=== PATIENT | male | born 1965 | race Caucasian/White ===

== ENCOUNTER 2017-05-14 19:25 | Emergency (ER) | payer OTHER ==
[~2017-05-14] VITALS: Ht 170.2 cm; Wt 56.7 kg
[~2017-05-14 19:25] MED LIST: LISI-586 PO; PRED20 PO; PROC60TA PO
[2017-05-14 19:31] VITALS: BP 174/91; PULSE 57; RESP 16; TEMP 98.5; O2SAT 100
[2017-05-14] MEDS ORDERED: LISI-519 PO (22:00)
[2017-05-14] MEDS ORDERED: METO25TA3 PO (22:00)
[2017-05-14] MEDS ORDERED: HYDR-3801 PO (22:00)
--- NOTE | 2017-05-14 22:35 | PD ---
HPI Chief Complaint: Injury Time Seen by Provider: 22:02 Travel History International Travel<30 days: No Contact w/Intl Traveler<30days: No Traveled to known affect area: No History of Present Illness HPI 52-year-old male presents to the emergency room for evaluation of right foot pain and swelling after injuring it yesterday. Patient dropped a large container full of wrenches on his foot. States pain was severe yesterday and has slightly improved today. It is worsened with any range of motion. Localized to the dorsal midfoot without radiation. He has been taking ibuprofen which moderately relieved symptoms. He walks with a limp. Denies paresthesias. Denies chronic medical conditions other than hypertension. PFSH Past Medical History Diminished Hearing: No Hypertension: Yes Tetanus Vaccination: < 5 Years Influenza Vaccination: No Past Surgical History Appendectomy: Yes Social History Alcohol Use: Yes (6-8 BEERS DAILY) Tobacco Use: Yes (snuff) Substance Use: No Allergies-Medications (Allergen,Severity, Reaction): Coded Allergies: No Known Allergies (Verified , 05/14/17) Reported Meds & Prescriptions Reported Meds & Active Scripts Active Reported Hydralazine (Hydralazine HCl) 100 Mg Tab 100 Mg PO BID Take with meals Lisinopril 5 Mg Tab 5 Mg PO DAILY Metoprolol Tartrate 25 Mg Tab 25 Mg PO BID Review of Systems Except as stated in HPI: all other systems reviewed are Neg Physical Exam Narrative GENERAL: Well-nourished, well-developed male in no acute distress. Afebrile. Ambulatory. SKIN: Focused skin assessment warm/dry. Moderate ecchymosis of the right dorsal foot. HEAD: Normocephalic. EYES: No scleral icterus. No injection or drainage. NECK: Supple, trachea midline. No JVD or lymphadenopathy. CARDIOVASCULAR: Regular rate and rhythm without murmurs, gallops, or rubs. RESPIRATORY: Breath sounds equal bilaterally. No accessory muscle use. MSK: Tenderness to palpation of the right dorsal foot. Moderate edema of the right foot. 2+ dorsalis pedis pulse and less than 2 second capillary refill distally. Data Data Last Documented VS Vital Signs Date Time Temp Pulse Resp B/P (MAP) Pulse Ox O2 Delivery O2 Flow Rate FiO2 05/14/17 23:14 05/14/17 19:31 98.5 57 16 100 Orders Orders Foot, Complete ([id number]) (05/14/17 ) Crutches (05/14/17 22:57) Splint Or Brace Apply/Monitor (05/14/17 22:57) Shoe Cast (05/14/17 ) MDM Medical Decision Making Medical Screen Exam Complete: Yes Emergency Medical Condition: Yes Medical Record Reviewed: Yes Differential Diagnosis Fracture, contusion, strain, sprain Narrative Course 52-year-old male presents to the emergency room for evaluation of right foot pain and swelling after injuring it yesterday. Patient dropped a heavy set of wrenches on his foot. Right lower extremity is neurovascularly intact with 2+ dorsalis pedis pulse and less than 2 second capillary refill distally. Range of motion secondary to pain. There is extreme tenderness to palpation of the dorsal midfoot. Patient has been ambulatory but with pain. No history of diabetes. X-ray shows no acute bony abnormality. Patient placed in a postop shoe and discharged with crutches. Told to follow up with a primary care physician or return for worsening symptoms. He understands and agrees to plan. Diagnosis Primary Impression: Contusion of right foot Qualified Codes: S90.31XA - Contusion of right foot, initial encounter Referrals: Primary Care Physician Additional Instructions: Rest and drink plenty of fluids. Take ibuprofen with food as directed, as needed for pain. Elevate and apply ice to the affected area for 20 minutes at a time, as needed for pain and swelling. Follow-up with a primary care physician. Return to the emergency room for worsening symptoms. Disposition: 01 DISCHARGE HOME Condition: Stable Keila Deleon May 14, 2017 22:35
--- NOTE | 2017-05-14 23:12 | RADRPT ---
EXAM DATE/TIME: 05/14/2017 22:36 [facility] COMPARISON: No previous studies available for comparison. INDICATIONS : Right foot pain. MEDICAL HISTORY : None. SURGICAL HISTORY : None. ENCOUNTER: Initial ACUITY: 2 days PAIN SCORE: 6/10 LOCATION: Right foot. FINDINGS: Three view examination of the right foot demonstrates no soft tissue swelling, dislocation, or fractu re. The tarsal bones appear intact. The interphalangeal and metatarsophalangeal joints are intact. The calcaneus is intact. Bony mineralization is normal. CONCLUSION: No acute disease. Daniel Hutchison MD on May 14, 2017 at 23:10 Board Certified Radiologist. This report was verified electronically.
== END 2017-05-14 23:15 | disposition home or self-care (01) ==
LOC: PHED 19:25 → PHEFT 23:15
DX: S90.31XA Contusion of right foot, initial encounter (principal); W22.8XXA Striking against or struck by other objects, initial encounter
CPT/HCPCS: 73630; 99283; E0113; L3260

== ENCOUNTER 2017-12-18 19:29 | Inpatient (IN) | payer OTHER ==
[2017-12-18] MEDS: PIPERACIL-TAZO 3.375 GM PREMIX 50 ML IV (20:27)
[2017-12-18] MEDS: TETANUS/DIPHTHERIA TOXOID ADULT 0.5 ML VIAL IM (20:28)
[2017-12-18 20:31] LABS: AUTOMATED NEUTROPHIL # 4.6 TH/MM3 (1.8-7.7); BASOPHIL # 0.2 TH/MM3 (0-0.2); BASOPHIL % 2.9 % (0.0-2.0); EOSINOPHIL % 0.2 % (0.0-4.0); HEMATOCRIT 34.6 % (39.0-51.0); HEMO FLAGS DIFF FINAL; HEMOGLOBIN 11.8 GM/DL (13.0-17.0); LYMPH % 14.2 % (9.0-44.0); MEAN CELL VOLUME 100.4 FL (80.0-100.0); MEAN CORPUSCULAR HEMOGLOBIN 34.3 PG (27.0-34.0); MEAN CORPUSCULAR HGB CONC 34.1 % (32.0-36.0); MEAN PLATELET VOLUME 6.5 FL (7.0-11.0); MONO % 19.6 % (0.0-8.0); MONOCYTE # 1.4 TH/MM3 (0-0.9); NEUT % 63.1 % (16.0-70.0); PLATELET COUNT 275 TH/MM3 (150-450); RED BLOOD COUNT 3.44 MIL/MM3 (4.50-5.90); RED CELL DISTRIBUTION WIDTH 12.2 % (11.6-17.2); WHITE BLOOD COUNT 7.2 TH/MM3 (4.0-11.0)
[2017-12-18 20:45] LABS: APTT (PATIENT) 27.1 SEC (24.3-30.1); INTERNATIONAL NORMALIZED RATIO 1.2 RATIO; PROTHROMBIN TIME - PATIENT 11.7 SEC (9.8-11.6)
[2017-12-18 21:00] LABS: CHLORIDE 90 MEQ/L (98-107); POTASSIUM 3.9 MEQ/L (3.5-5.1); SODIUM (NA) 125 MEQ/L (136-145)
[2017-12-18 21:03] LABS: ANION GAP 8 MEQ/L (5-15); BICARBONATE 27.2 MEQ/L (21.0-32.0); BLOOD UREA NITROGEN 6 MG/DL (7-18); CALCIUM 8.5 MG/DL (8.5-10.1); GLUCOSE,RANDOM 94 MG/DL (74-106)
[2017-12-18] MEDS: VANCOMYCIN INJ 1,000 MG in SODIUM CHLOR 0.9% 250 ML INJ 250 ML IV (21:06)
[2017-12-18 21:07] LABS: CREATININE 0.64 MG/DL (0.60-1.30); GLOMERULAR FILTRATION RATE 131 ML/MIN (>89)
[2017-12-18] MEDS ORDERED: LACTULOSE SYRUP 20 GM/30 ML CUP PO (21:30)
[2017-12-18] MEDS ORDERED: LORazepam 2 MG TAB PO (21:30)
[2017-12-18] MEDS ORDERED: MAGNESIUM HYDROXIDE SUSP 30 ML CUP PO (21:30)
[2017-12-18] MEDS ORDERED: NALOXONE HCL 0.4 MG/ML AMP IV PUSH (21:30)
[2017-12-18] MEDS ORDERED: FLUMAZENIL 0.5 MG/5 ML VIAL IV PUSH (21:30)
[2017-12-18] MEDS ORDERED: LORazepam 1 MG TAB PO (21:30)
[2017-12-18] MEDS ORDERED: LORazepam 2 MG/ML VIAL IV PUSH ×4 (21:30)
[2017-12-18] MEDS ORDERED: SENNOSIDES 8.6 MG TAB PO (21:30)
[2017-12-18] MEDS ORDERED: BISACODYL 10 MG SUPP RECTAL (21:30)
[2017-12-18] MEDS ORDERED: Vancomycin Consult Pharmacy 1 EA OTHER (22:30)
[2017-12-19] MEDS: MORPHINE SULFATE 4 MG/ML INJ IV ×3 (01:27→16:52)
[2017-12-19] MEDS: SODIUM CHLORIDE 0.9% FLUSH 10 ML FLUSH IV FLUSH ×4 (01:27→20:23)
[2017-12-19] MEDS: PIPERACIL-TAZO 4.5 GM PREMIX 100 ML IV ×4 (02:57→20:14)
[2017-12-19 08:36] LABS: AUTOMATED NEUTROPHIL # 4.7 TH/MM3 (1.8-7.7); BASOPHIL % 0.6 % (0.0-2.0); EOSINOPHIL % 0.6 % (0.0-4.0); HEMATOCRIT 40.7 % (39.0-51.0); HEMOGLOBIN 13.4 GM/DL (13.0-17.0); LYMPH % 13.3 % (9.0-44.0); LYMPHOCYTE # 0.9 TH/MM3 (1.0-4.8); MEAN CELL VOLUME 100.8 FL (80.0-100.0); MEAN CORPUSCULAR HEMOGLOBIN 33.3 PG (27.0-34.0); MEAN PLATELET VOLUME 6.7 FL (7.0-11.0); MONOCYTE # 1.4 TH/MM3 (0-0.9); NEUT % 65.5 % (16.0-70.0); PLATELET COUNT 279 TH/MM3 (150-450); RED BLOOD COUNT 4.03 MIL/MM3 (4.50-5.90); RED CELL DISTRIBUTION WIDTH 12.4 % (11.6-17.2)
[2017-12-19 08:38] LABS: HEMO FLAGS AUTO DIFF
[2017-12-19 08:53] LABS: CHLORIDE 93 MEQ/L (98-107); POTASSIUM 3.8 MEQ/L (3.5-5.1); SODIUM (NA) 129 MEQ/L (136-145)
[2017-12-19] MEDS: DOCUSATE SODIUM 50 MG/SENNA 8.6 MG TAB PO ×2 (09:00→20:15)
[2017-12-19 09:02] LABS: ALBUMIN 3.6 GM/DL (3.4-5.0); ALT (GPT) 145 U/L (12-78); ANION GAP 9 MEQ/L (5-15); AST (GOT) 179 U/L (15-37); BICARBONATE 26.6 MEQ/L (21.0-32.0); BLOOD UREA NITROGEN 5 MG/DL (7-18); CALCIUM 9.5 MG/DL (8.5-10.1); CREATININE 0.71 MG/DL (0.60-1.30); GLOMERULAR FILTRATION RATE 116 ML/MIN (>89); GLUCOSE,RANDOM 90 MG/DL (74-106)
[2017-12-19] MEDS: VANCOMYCIN 1,000 MG/NS 250 ML IV ×2 (09:02→20:57)
[2017-12-19 09:11] LABS: ALKALINE PHOSPHATASE 55 U/L (45-117); TOTAL BILIRUBIN ADULT 1.1 MG/DL (0.2-1.0); TOTAL PROTEIN 8.5 GM/DL (6.4-8.2)
[2017-12-19 09:12] LABS: SCAN/DIFF AUTO DIFF CONFIRMED
[2017-12-19] MEDS: SODIUM CHLOR 0.9% 1000 ML INJ 1,000 ML IV (10:51)
[2017-12-19] MEDS: CITALOPRAM HYDROBROMIDE 40 MG TAB PO (12:15)
[2017-12-19] MEDS: METOPROLOL TARTRATE 50 MG TAB PO ×2 (12:15→20:22)
[2017-12-19] MEDS: LISINOPRIL 20 MG TAB PO ×2 (12:15→20:15)
[2017-12-19] MEDS: hydrALAZINE HCL 25 MG TAB PO ×2 (12:15→20:15)
[2017-12-19] MEDS: DEXT 5%-NACL 0.9% 1000 ML INJ 1,000 ML IV (12:16)
[2017-12-19] MEDS: GADODIAMIDE PF 287 MG/ML 10 ML VIAL (for RAD MRI) IVCONTRAST (15:11)
[2017-12-20] MEDS: DEXT 5%-NACL 0.9% 1000 ML INJ 1,000 ML IV ×4 (00:45→20:44)
[2017-12-20] MEDS: PIPERACIL-TAZO 4.5 GM PREMIX 100 ML IV ×3 (02:47→15:49)
[2017-12-20] MEDS: SODIUM CHLORIDE 0.9% FLUSH 10 ML FLUSH IV FLUSH ×2 (08:29→20:42)
[2017-12-20] MEDS: CITALOPRAM HYDROBROMIDE 40 MG TAB PO (08:30)
[2017-12-20] MEDS: LISINOPRIL 20 MG TAB PO (08:30)
[2017-12-20] MEDS: METOPROLOL TARTRATE 50 MG TAB PO ×2 (08:31→20:45)
[2017-12-20] MEDS: DOCUSATE SODIUM 50 MG/SENNA 8.6 MG TAB PO (08:31)
[2017-12-20] MEDS: hydrALAZINE HCL 25 MG TAB PO ×2 (08:31→20:45)
[2017-12-20] MEDS: VANCOMYCIN TROUGH (08:45)
[2017-12-20] MEDS: VANCOMYCIN 1,000 MG/NS 250 ML IV (09:35)
[2017-12-20 10:27] LABS: GLOMERULAR FILTRATION RATE 49 ML/MIN (>89)
[2017-12-20 11:34] LABS: ALBUMIN 2.6 GM/DL (3.4-5.0); ALKALINE PHOSPHATASE 37 U/L (45-117); ALT (GPT) 95 U/L (12-78); ANION GAP 8 MEQ/L (5-15); AST (GOT) 99 U/L (15-37); BICARBONATE 26.4 MEQ/L (21.0-32.0); BLOOD UREA NITROGEN 9 MG/DL (7-18); CALCIUM 8.4 MG/DL (8.5-10.1); CHLORIDE 101 MEQ/L (98-107); GLOMERULAR FILTRATION RATE 49 ML/MIN (>89); GLUCOSE,RANDOM 108 MG/DL (74-106); POTASSIUM 3.7 MEQ/L (3.5-5.1); SODIUM (NA) 135 MEQ/L (136-145); TOTAL BILIRUBIN ADULT 0.9 MG/DL (0.2-1.0); TOTAL PROTEIN 6.9 GM/DL (6.4-8.2)
[2017-12-20 13:54] LABS: VANCOMYCIN TROUGH 19.2 MCG/ML (5.0-10.0)
[2017-12-20] MEDS: LOPERAMIDE HCL 2 MG CAP PO (15:49)
[2017-12-20 18:20] LABS: BILIRUBIN, URINE NEG (NEG); BLOOD, URINE NEG (NEG); GLUCOSE,URINE NEG (NEG); KETONE, URINE NEG (NEG); NITRITE,URINE NEG (NEG); URINE COLOR YELLOW (YELLW/STRAW); URINE LEUKOCYTE ESTERASE NEG (NEG)
[2017-12-20 18:25] LABS: COMMENT (UR) CULT NOT INDICATED; CULTURE IF INDICATED CULT NOT INDICATED; RBC, URINE 0-3 /hpf (0-3)
[2017-12-20] MEDS: DAPTOmycin INJ 360 MG in SODIUM CHLORIDE 0.9% INJ 100 ML IV (20:45)
[2017-12-21 04:31] LABS: SODIUM,RANDOM URINE 40 MEQ/L
[2017-12-21] MEDS: DEXT 5%-NACL 0.9% 1000 ML INJ 1,000 ML IV ×3 (05:06→18:45)
[2017-12-21 06:52] LABS: HEMATOCRIT 30.8 % (39.0-51.0); MEAN CELL VOLUME 101.3 FL (80.0-100.0); MEAN CORPUSCULAR HEMOGLOBIN 32.9 PG (27.0-34.0); MEAN CORPUSCULAR HGB CONC 32.5 % (32.0-36.0); MEAN PLATELET VOLUME 6.6 FL (7.0-11.0); PLATELET COUNT 241 TH/MM3 (150-450); RED BLOOD COUNT 3.04 MIL/MM3 (4.50-5.90); RED CELL DISTRIBUTION WIDTH 12.4 % (11.6-17.2); REVIEW FLAG FINAL; WHITE BLOOD COUNT 5.4 TH/MM3 (4.0-11.0)
[2017-12-21 07:27] LABS: ANION GAP 5 MEQ/L (5-15); BICARBONATE 24.7 MEQ/L (21.0-32.0); BLOOD UREA NITROGEN 6 MG/DL (7-18); CALCIUM 8.4 MG/DL (8.5-10.1); CHLORIDE 110 MEQ/L (98-107); GLOMERULAR FILTRATION RATE 70 ML/MIN (>89); GLUCOSE,RANDOM 110 MG/DL (74-106); MAGNESIUM 1.8 MG/DL (1.5-2.5); POTASSIUM 3.6 MEQ/L (3.5-5.1); SODIUM (NA) 140 MEQ/L (136-145)
[2017-12-21] MEDS: SODIUM CHLORIDE 0.9% FLUSH 10 ML FLUSH IV FLUSH ×2 (09:00→19:27)
[2017-12-21] MEDS: METOPROLOL TARTRATE 50 MG TAB PO ×2 (09:27→21:55)
[2017-12-21] MEDS: CITALOPRAM HYDROBROMIDE 40 MG TAB PO (09:27)
[2017-12-21] MEDS: hydrALAZINE HCL 25 MG TAB PO ×2 (09:27→21:51)
[2017-12-21] MEDS ORDERED: SODIUM CHLORIDE 0.9% FLUSH 10 ML FLUSH IV FLUSH (11:00)
[2017-12-21] MEDS: amLODIPine BESYLATE 5 MG TAB PO (18:47)
[2017-12-21] MEDS: DAPTOmycin INJ 360 MG in SODIUM CHLORIDE 0.9% INJ 100 ML IV (21:51)
[2017-12-22] MEDS: DEXT 5%-NACL 0.9% 1000 ML INJ 1,000 ML IV (04:25)
[2017-12-22] MEDS: cloNIDine HCL 0.1 MG TAB PO (06:27)
[2017-12-22] MEDS: RESP: ALBUTEROL 2.5 MG/IPRATROPIUM 0.5 MG NEB (SCH) NEB ×4 (06:34→20:16)
[2017-12-22] MEDS: FUROSEMIDE 40 MG/4 ML VIAL IV PUSH ×3 (07:00→08:28)
[2017-12-22 07:26] LABS: CHLORIDE 109 MEQ/L (98-107); POTASSIUM 3.6 MEQ/L (3.5-5.1); SODIUM (NA) 140 MEQ/L (136-145)
[2017-12-22 07:27] LABS: HEMATOCRIT 30.5 % (39.0-51.0); HEMOGLOBIN 10.6 GM/DL (13.0-17.0); MEAN CELL VOLUME 101.9 FL (80.0-100.0); MEAN CORPUSCULAR HEMOGLOBIN 35.5 PG (27.0-34.0); MEAN CORPUSCULAR HGB CONC 34.8 % (32.0-36.0); MEAN PLATELET VOLUME 7.2 FL (7.0-11.0); PLATELET COUNT 255 TH/MM3 (150-450); RED BLOOD COUNT 2.99 MIL/MM3 (4.50-5.90); RED CELL DISTRIBUTION WIDTH 12.5 % (11.6-17.2); REVIEW FLAG FINAL
[2017-12-22 07:31] LABS: ALBUMIN 2.5 GM/DL (3.4-5.0); ANION GAP 7 MEQ/L (5-15); BICARBONATE 23.6 MEQ/L (21.0-32.0); GLUCOSE,RANDOM 98 MG/DL (74-106); MAGNESIUM 1.3 MG/DL (1.5-2.5)
[2017-12-22 07:32] LABS: BLOOD UREA NITROGEN 4 MG/DL (7-18); CALCIUM 8.2 MG/DL (8.5-10.1)
[2017-12-22 07:34] LABS: ALT (GPT) 84 U/L (12-78); AST (GOT) 70 U/L (15-37); DIRECT BILIRUBIN ADULT 0.2 MG/DL (0.0-0.2); GLOMERULAR FILTRATION RATE 78 ML/MIN (>89)
[2017-12-22 07:36] LABS: INDIRECT BILIRUBIN 0.5 MG/DL (0.0-0.8); TOTAL BILIRUBIN ADULT 0.7 MG/DL (0.2-1.0); TOTAL PROTEIN 6.9 GM/DL (6.4-8.2)
[2017-12-22 07:37] LABS: ALKALINE PHOSPHATASE 40 U/L (45-117)
[2017-12-22] MEDS ORDERED: RESP: ALBUTEROL 2.5 MG/IPRATROPIUM 0.5 MG NEB (PRN) NEB (07:45)
[2017-12-22] MEDS: SODIUM CHLORIDE 0.9% FLUSH 10 ML FLUSH IV FLUSH ×3 (08:31→20:52)
[2017-12-22] MEDS: POTASSIUM CHLORIDE 20 MEQ CONTROLLED RELEASE TAB PO (08:35)
[2017-12-22] MEDS: MAGNESIUM OXIDE 400 MG TAB PO (08:35)
[2017-12-22] MEDS: amLODIPine BESYLATE 5 MG TAB PO (08:35)
[2017-12-22] MEDS: hydrALAZINE HCL 25 MG TAB PO ×2 (08:35→20:50)
[2017-12-22] MEDS: CITALOPRAM HYDROBROMIDE 40 MG TAB PO (08:35)
[2017-12-22 09:26] LABS: LACTIC ACID 1.8 mmol/L (0.4-2.0)
[2017-12-22 09:33] LABS: B-TYPE NATRIURETIC PEPTIDE 1448 PG/ML (0-100)
[2017-12-22 09:34] LABS: CREATINE KINASE 78 U/L (39-308)
[2017-12-22 09:34] LABS: D-DIMER 7.97 MG/L FEU (0.00-0.50)
[2017-12-22] MEDS: ACETAMINOPHEN 325 MG TAB PO (09:51)
[2017-12-22] MEDS: METOPROLOL TARTRATE 50 MG TAB PO ×2 (09:55→20:50)
[2017-12-22 11:15] LABS: TROPONIN I LESS THAN 0.02 NG/ML (0.02-0.05)
[2017-12-22] MEDS: IOHEXOL 350 MG/ML 10 ML VIAL (for RAD DIAG) IVCONTRAST (11:48)
[2017-12-22] MEDS ORDERED: ACETAMINOPHEN 325 MG TAB PO (14:45)
[2017-12-22 15:51] LABS: TROPONIN I LESS THAN 0.02 NG/ML (0.02-0.05)
[2017-12-22 16:16] LABS: CREATINE KINASE 75 U/L (39-308)
[2017-12-22] MEDS ORDERED: CHLORHEXIDINE GLUCONATE 2 % 1 PACK (2 CLOTHS)(extra cloths) TOPICAL (20:45)
[2017-12-22] MEDS: DAPTOmycin INJ 360 MG in SODIUM CHLORIDE 0.9% INJ 100 ML IV (20:52)
[2017-12-22 21:38] LABS: TROPONIN I LESS THAN 0.02 NG/ML (0.02-0.05)
[2017-12-22 22:07] LABS: CREATINE KINASE 72 U/L (39-308)
[2017-12-23 00:46] LABS: MRSA PCR SURVEILLANCE MRSA DETECTED (NOT DETECT)
[2017-12-23] MEDS: CHLORHEXIDINE GLUCONATE 2 % 1 PACK (2 CLOTHS)(taper/protocol) TOPICAL (03:45)
[2017-12-23] MEDS: hydrALAZINE HCL 20 MG/ML VIAL IV PUSH (04:37)
[2017-12-23 05:00] LABS: AUTOMATED NEUTROPHIL # 5.1 TH/MM3 (1.8-7.7); BASOPHIL % 0.2 % (0.0-2.0); EOSINOPHIL # 0.1 TH/MM3 (0-0.4); EOSINOPHIL % 2.1 % (0.0-4.0); HEMATOCRIT 28.2 % (39.0-51.0); HEMO FLAGS DIFF FINAL; HEMOGLOBIN 10.1 GM/DL (13.0-17.0); LYMPH % 14.2 % (9.0-44.0); MEAN CORPUSCULAR HEMOGLOBIN 36.2 PG (27.0-34.0); MEAN CORPUSCULAR HGB CONC 35.8 % (32.0-36.0); MEAN PLATELET VOLUME 6.5 FL (7.0-11.0); MONO % 11.5 % (0.0-8.0); MONOCYTE # 0.8 TH/MM3 (0-0.9); PLATELET COUNT 254 TH/MM3 (150-450); RED CELL DISTRIBUTION WIDTH 12.3 % (11.6-17.2)
[2017-12-23 05:19] LABS: CHLORIDE 102 MEQ/L (98-107); POTASSIUM 3.5 MEQ/L (3.5-5.1); SODIUM (NA) 137 MEQ/L (136-145)
[2017-12-23 05:22] LABS: ALBUMIN 2.4 GM/DL (3.4-5.0); ANION GAP 6 MEQ/L (5-15); BICARBONATE 28.6 MEQ/L (21.0-32.0); BLOOD UREA NITROGEN 7 MG/DL (7-18); CALCIUM 8.3 MG/DL (8.5-10.1); GLUCOSE,RANDOM 90 MG/DL (74-106); MAGNESIUM 1.4 MG/DL (1.5-2.5)
[2017-12-23 05:25] LABS: ALT (GPT) 70 U/L (12-78); AST (GOT) 47 U/L (15-37); CREATININE 0.97 MG/DL (0.60-1.30); GLOMERULAR FILTRATION RATE 81 ML/MIN (>89)
[2017-12-23 05:27] LABS: TOTAL BILIRUBIN ADULT 0.5 MG/DL (0.2-1.0); TOTAL PROTEIN 6.8 GM/DL (6.4-8.2)
[2017-12-23 05:28] LABS: ALKALINE PHOSPHATASE 39 U/L (45-117)
[2017-12-23] MEDS: RESP: ALBUTEROL 2.5 MG/IPRATROPIUM 0.5 MG NEB (SCH) NEB ×2 (07:43→14:58)
[2017-12-23] MEDS: CITALOPRAM HYDROBROMIDE 40 MG TAB PO (08:21)
[2017-12-23] MEDS: hydrALAZINE HCL 25 MG TAB PO (08:21)
[2017-12-23] MEDS: amLODIPine BESYLATE 5 MG TAB PO (08:21)
[2017-12-23] MEDS: METOPROLOL TARTRATE 50 MG TAB PO (08:22)
[2017-12-23] MEDS: SODIUM CHLORIDE 0.9% FLUSH 10 ML FLUSH IV FLUSH ×2 (08:22)
[2017-12-23] MEDS: DAPTOmycin INJ 360 MG in SODIUM CHLORIDE 0.9% INJ 100 ML IV (13:36)
[2017-12-23 15:02] LABS: C. DIFF EPI 027 PRESUMPTIVE NEGATIVE (NEGATIVE); C. DIFF TOXIN PCR NEGATIVE (NEGATIVE)
== END 2017-12-23 18:20 | disposition home health service (06) | DRG 602 ==
LOC: PHICU 12-22 09:06 → PHED 19:29 → PHEDA 21:20 → PH3B 23:19
DX: L03.114 Cellulitis of left upper limb (principal); J96.01 Acute respiratory failure with hypoxia; N17.9 Acute kidney failure, unspecified; I10 Essential (primary) hypertension; S51.012A Laceration without foreign body of left elbow, initial encounter; D64.9 Anemia, unspecified; J81.0 Acute pulmonary edema; E87.1 Hypo-osmolality and hyponatremia; M71.122 Other infective bursitis, left elbow; F10.20 Alcohol dependence, uncomplicated; R19.7 Diarrhea, unspecified; T36.95XA Adverse effect of unspecified systemic antibiotic, initial encounter; B95.62 Methicillin resistant Staphylococcus aureus infection as the cause of diseases classified elsewhere; E87.70 Fluid overload, unspecified; R79.1 Abnormal coagulation profile; W01.198A Fall on same level from slipping, tripping and stumbling with subsequent striking against other object, initial encounter; Y93.K1 Activity, walking an animal; Z72.0 Tobacco use
CPT/HCPCS: 36569; 71045; 71275; 73080; 73223; 76775; 76937; 80048; 80053; 80076; 80202; 81001; 82550; 82565; 82570; 83605; 83735; 83880; 84300; 84484; 85025; 85027; 85379; 85610; 85730; 86403; 87040; 87070; 87147; 87186; 87205; 87493; 87641; 90471; 90714; 93005; 93306; 94150; 94640; 94664; 96365; 96375; 97110-GO; 97161-GP; 97167-GO; 99285-25

== ENCOUNTER 2018-09-28 21:29 | Inpatient (IN) ==
--- NOTE | 2018-09-28 22:36 | ED ---
HPI General Chief complaint: Respiratory Symptoms Stated complaint: n/cough x1 wk Time Seen by Provider: 09/28/18 22:32 Source: patient and EMS Mode of arrival: EMS Limitations: no limitations History of Present Illness HPI Narrative: 53-year-old male with known history of high blood pressure that typically takes amlodipine hydralazine and metoprolol presents to the emergency department for complaint of generalized weakness progressively worsening since Sunday. Patient states on Sunday he went to urgent care for pimples and bumps on his scalp and was diagnosed with folliculitis and started on Bactrim DS antibiotic. Patient reports on Sunday he felt worse and return to the urgent care was treated for bronchitis and started on azithromycin after a negative flu test and given prescription also for Tesjohn Perles. Patient states by Sunday he had poor appetite and increasing fatigue myalgias and arthralgias but no fever or chills. On and Sunday poor oral intake and today has had low blood pressures so called paramedics to transport him to the emergency room. Patient has been taking his blood pressure medication as prescribed. Patient denies any isolated headache neck stiffness has had sinus pressure some drainage no ear pain no sore throat has had no neck stiffness or pain with movement has had no chest pain no shortness of breath no productive cough has had nausea has had vomiting has had diarrhea has had no abdominal pain no flank pain has had increased urine output no hematuria no dysuria no joint pain no swelling and no skin rash. Complaint: Reports generalized weakness Onset (ago): day(s) Related Data Home Medications Medication Instructions Recorded Confirmed amlodipine 5 mg PO DAILY 04/30/18 09/28/18 hydralazine 25 mg PO BID 04/30/18 09/28/18 metoprolol succinate 50 mg PO BID 04/30/18 09/28/18 azithromycin 250 mg PO DAILY 09/28/18 09/28/18 benzonatate 200 mg PO TID PRN 09/28/18 09/28/18 citalopram 40 mg PO DAILY 09/28/18 09/28/18 sulfamethoxazole-trimethoprim 1 tab PO BID 09/28/18 09/28/18 [Bactrim DS] Allergies Allergy/AdvReac Type Severity Reaction Status Date / Time No Known Allergies Allergy Verified 09/28/18 23:23 Review of Systems ROS: all other systems reviewed are negative PMFSH History History Provided By: Patient (Hypertension) Medical History Medical History Alcohol use (Acute) Congestive heart failure (Acute) HTN (hypertension) (Acute) Surgical History Surgical History History of appendectomy (Acute) History of facial surgery (Acute) Family History Family History Father History of lung cancer Mother History of lung cancer Social History Social History Substance History: No History of Abuse Second Hand Smoke Exposure: Yes Smoking Status: Never smoker How Often Do You Have a Drink Containing Alcohol: 4 or more times a week Recent Travel in [facility] [[email or web address]] within the Last 8 Weeks: No Exam Narrative Exam Narrative: GENERAL: Well-nourished, well-developed patient. SKIN: Focused skin assessment warm/dry. HEAD: Normocephalic. EYES: No scleral icterus. No injection or drainage. NECK: Supple, trachea midline. No JVD or lymphadenopathy. CARDIOVASCULAR: Regular rate and rhythm without murmurs, gallops, or rubs. RESPIRATORY: Breath sounds equal bilaterally. No accessory muscle use. GASTROINTESTINAL: Abdomen soft, non-tender, nondistended. MUSCULOSKELETAL: No cyanosis, or edema. BACK: Nontender without obvious deformity. No CVA tenderness. Course Initial Documented Vital Signs Temperature 97.5 F L 09/28/18 21:55 Pulse Rate 54 L 09/28/18 21:55 Respiratory Rate 18 09/28/18 21:55 Blood Pressure 80/51 L 09/28/18 21:55 Pulse Oximetry 99 09/28/18 21:55 Last Documented Vital Signs Temperature 97.4 F L 09/29/18 12:00 Pulse Rate 57 L 09/29/18 12:00 Respiratory Rate 20 09/29/18 12:00 Blood Pressure 148/70 H 09/29/18 12:00 Pulse Oximetry 96 09/29/18 12:00 Critical Care Time Critical Care Time: Yes Total Critical Care Time: 35 Attestation: Aggregate critical care time was 35 minutes. Time to perform other separately billable procedures was not included in the critical care time. My time did not include minutes spent treating any other patients simultaneously or on activities that did not directly contribute to the patient's treatment. The services I provided to this patient were to treat and/or prevent clinically significant deterioration that could result in: Sepsis, PE, I provided critical care services requiring my management, as noted below: Chart data review, documentation time, medication orders and management, vital sign assessments/reviewing monitor data, ordering and reviewing lab tests, ordering and interpreting/reviewing x-rays and diagnostic studies, care of the patient and discussion of the patient with the admitting physicians. Medical Decision Making MDM Narrative Medical decision making narrative: Patient placed on engineer second assistant IV access obtained specimens collected and sent for resulting 2 IVs inserted patient given 2 L of normal saline blood cultures obtained patient is afebrile and has been on 2 oral antibiotics will reassess for need for IV antibiotic. CBC is automated differential with leukopenia 2600 total white cell count with marked monocytosis of 17% hemoglobin is in normal range at 13.1 platelet count normal range 190,000 chemistries remarkable for hyponatremia of 123 bicarb is in normal range calcium is in normal range magnesium is in normal range serum alcohol level is elevated at 158. Troponin is less than 0.02 not elevated EKG is sinus bradycardia with no acute ST elevation or injury pattern. D-dimer was elevated at 1.71 chest x-ray no lobar infiltrate CTA pulmonary angiogram negative. Lactic acid is negative at 1.1 Patient with marked response in blood pressure improvement after 2 L normal saline. Patient informed of abnormal lab values discussed with medicine service and patient will be admitted for hyponatremia alcohol use and viral syndrome with hypotension. D-dimer elevated CT pulmonary angiogram negative for PE or acute process Discussed with [facility] serivice Dr Marin for admission Medical Screen Exam Complete: Yes Emergency Medical Condition: Yes Lab Data Result diagrams: 09/29/18 06:25 09/29/18 12:25 Lab Results 09/28/18 09/28/18 09/28/18 Range/Units 21:40 22:45 22:45 CBC w Diff Slide review pending WBC 2.6 L (4.0-11.0) th/mm3 RBC 3.80 L (4.50-5.90) mil/mm3 Hgb 13.1 (13.0-17.0) gm/dL Hct 38.4 L (39.0-51.0) % MCV 101.0 H (80.0-100.0) fL MCH 34.5 H (27.0-34.0) pg MCHC 34.1 (32.0-36.0) % RDW 12.5 (11.6-17.2) % Plt Count 190 (150-450) th/mm3 MPV 7.0 (7.0-11.0) fL Neut % (Auto) 37.5 (16.0-70.0) % Lymph % (Auto) 36.2 (9.0-44.0) % [place]row % (Auto) 17.5 H (0.0-8.0) % Eos % (Auto) 7.2 H (0.0-4.0) % Baso % (Auto) 1.6 (0.0-2.0) % Neut # (Auto) 1.0 L (1.8-7.7) th/mm3 Lymph # (Auto) 0.9 L (1.0-4.8) th/mm3 Morrow # (Auto) 0.5 (0.0-0.9) th/mm3 Eos # (Auto) 0.2 (0.0-0.4) th/mm3 Baso # (Auto) 0.0 (0.0-0.2) th/mm3 WBC Differential Manual diff final Diff Scan Seg Neuts % (Manual) 46 (16-70) % Lymphocytes % (Manual) 38 (9-44) % Monocytes % (Manual) 12 H (0-8) % Eosinophils % (Manual) 4 (0-4) % Abs Neuts (Manual) 1.2 L (1.8-7.7) th/mm3 Differential Comment . Platelet Estimate Normal (Normal) Platelet Morphology Normal (Normal) D-Dimer Quant (PE/DVT) (0.00-0.50) mg/L FEU Sodium 123 L* (136-145) meq/L Potassium 3.5 (3.5-5.1) meq/L Chloride 91 L (98-107) meq/L Carbon Dioxide 23.1 (21.0-32.0) meq/L Anion Gap 9 (5-15) meq/L BUN 7 (7-18) mg/dL Creatinine 1.00 (0.60-1.30) mg/dL Estimated GFR 78 L (>89) mL/min POC Glucose (68-110) mg/dl Random Glucose 85 (74-106) mg/dL Osmolality (275-295) mosm/kg Lactic Acid (0.4-2.0) mmol/L Calcium 7.9 L (8.5-10.1) mg/dL Magnesium 1.7 (1.5-2.5) mg/dL Total Bilirubin 0.2 (0.2-1.0) mg/dL AST 61 H (15-37) U/L ALT 39 (12-78) U/L Alkaline Phosphatase 74 (45-117) U/L Troponin I Less than 0.02 L (0.02-0.05) ng/mL Total Protein 7.9 (6.4-8.2) g/dL Albumin 3.4 (3.4-5.0) g/dL TSH (0.358-3.740) uIU/mL Urine Color Yellow (Yellw/Straw) Urine Clarity Clear (Clear) Urine pH 6.5 (5.0-8.5) Ur Specific [place] 1.010 (1.002-1.035) Urine Protein Negative (Neg-Trace) mg/dL Urine Glucose (UA) Negative (Negative) mg/dL Urine Ketones Negative (Negative) mg/dL Urine Occult Blood Negative (Negative) Urine Nitrate Negative (Negative) Urine Bilirubin Negative (Negative) Urine Urobilinogen 1.0 (Less than 2) mg/dL Ur Leukocyte Esterase Negative (Negative) Urine WBC 0-5 (0-5) /hpf Hyaline Casts 0-3 (0-3) /lpf Urine Mucus Few H (Occasional) /lpf Micro UA Comment Culture not ind Ur Microscopic Review Microscopic reviewed Urine Culture Comments Culture not ind Serum Alcohol (0-5) mg/dL 09/28/18 09/28/18 09/28/18 Range/Units 22:45 22:45 22:57 CBC w Diff WBC (4.0-11.0) th/mm3 RBC (4.50-5.90) mil/mm3 Hgb (13.0-17.0) gm/dL Hct (39.0-51.0) % MCV (80.0-100.0) fL MCH (27.0-34.0) pg MCHC (32.0-36.0) % RDW (11.6-17.2) % Plt Count (150-450) th/mm3 MPV (7.0-11.0) fL Neut % (Auto) (16.0-70.0) % Lymph % (Auto) (9.0-44.0) % Morrow % (Auto) (0.0-8.0) % Eos % (Auto) (0.0-4.0) % Baso % (Auto) (0.0-2.0) % Neut # (Auto) (1.8-7.7) th/mm3 Lymph # (Auto) (1.0-4.8) th/mm3 Morrow # (Auto) (0.0-0.9) th/mm3 Eos # (Auto) (0.0-0.4) th/mm3 Baso # (Auto) (0.0-0.2) th/mm3 WBC Differential Diff Scan Seg Neuts % (Manual) (16-70) % Lymphocytes % (Manual) (9-44) % Monocytes % (Manual) (0-8) % Eosinophils % (Manual) (0-4) % Abs Neuts (Manual) (1.8-7.7) th/mm3 Differential Comment Platelet Estimate (Normal) Platelet Morphology (Normal) D-Dimer Quant (PE/DVT) 1.71 H (0.00-0.50) mg/L FEU Sodium (136-145) meq/L Potassium (3.5-5.1) meq/L Chloride (98-107) meq/L Carbon Dioxide (21.0-32.0) meq/L Anion Gap (5-15) meq/L BUN (7-18) mg/dL Creatinine (0.60-1.30) mg/dL Estimated GFR (>89) mL/min POC Glucose 83 (68-110) mg/dl Random Glucose (74-106) mg/dL Osmolality (275-295) mosm/kg Lactic Acid 1.1 (0.4-2.0) mmol/L Calcium (8.5-10.1) mg/dL Magnesium (1.5-2.5) mg/dL Total Bilirubin (0.2-1.0) mg/dL AST (15-37) U/L ALT (12-78) U/L Alkaline Phosphatase (45-117) U/L Troponin I (0.02-0.05) ng/mL Total Protein (6.4-8.2) g/dL Albumin (3.4-5.0) g/dL TSH (0.358-3.740) uIU/mL Urine Color (Yellw/Straw) Urine Clarity (Clear) Urine pH (5.0-8.5) Ur Specific [place] (1.002-1.035) Urine Protein (Neg-Trace) mg/dL Urine Glucose (UA) (Negative) mg/dL Urine Ketones (Negative) mg/dL Urine Occult Blood (Negative) Urine Nitrate (Negative) Urine Bilirubin (Negative) Urine Urobilinogen (Less than 2) mg/dL Ur Leukocyte Esterase (Negative) Urine WBC (0-5) /hpf Hyaline Casts (0-3) /lpf Urine Mucus (Occasional) /lpf Micro UA Comment Ur Microscopic Review Urine Culture Comments Serum Alcohol (0-5) mg/dL 09/28/18 09/29/18 09/29/18 Range/Units 23:04 06:25 06:25 CBC w Diff Slide review pending WBC 2.5 L (4.0-11.0) th/mm3 RBC 3.43 L (4.50-5.90) mil/mm3 Hgb 11.8 L (13.0-17.0) gm/dL Hct 34.5 L (39.0-51.0) % MCV 100.7 H (80.0-100.0) fL MCH 34.6 H (27.0-34.0) pg MCHC 34.3 (32.0-36.0) % RDW 12.6 (11.6-17.2) % Plt Count 185 (150-450) th/mm3 MPV 7.0 (7.0-11.0) fL Neut % (Auto) 42.2 (16.0-70.0) % Lymph % (Auto) 34.0 (9.0-44.0) % [place]row % (Auto) 16.6 H (0.0-8.0) % Eos % (Auto) 6.1 H (0.0-4.0) % Baso % (Auto) 1.1 (0.0-2.0) % Neut # (Auto) 1.0 L (1.8-7.7) th/mm3 Lymph # (Auto) 0.9 L (1.0-4.8) th/mm3 [place]row # (Auto) 0.4 (0.0-0.9) th/mm3 Eos # (Auto) 0.2 (0.0-0.4) th/mm3 Baso # (Auto) 0.0 (0.0-0.2) th/mm3 WBC Differential . Diff Scan Auto diff confirmed Seg Neuts % (Manual) (16-70) % Lymphocytes % (Manual) (9-44) % Monocytes % (Manual) (0-8) % Eosinophils % (Manual) (0-4) % Abs Neuts (Manual) (1.8-7.7) th/mm3 Differential Comment . Platelet Estimate (Normal) Platelet Morphology (Normal) D-Dimer Quant (PE/DVT) (0.00-0.50) mg/L FEU Sodium 132 L (136-145) meq/L Potassium 4.2 (3.5-5.1) meq/L Chloride 103 D (98-107) meq/L Carbon Dioxide 23.1 (21.0-32.0) meq/L Anion Gap 6 (5-15) meq/L BUN 5 L (7-18) mg/dL Creatinine 0.79 (0.60-1.30) mg/dL Estimated GFR Greater than 89 (>89) mL/min POC Glucose (68-110) mg/dl Random Glucose 73 L (74-106) mg/dL Osmolality (275-295) mosm/kg Lactic Acid (0.4-2.0) mmol/L Calcium 7.7 L (8.5-10.1) mg/dL Magnesium (1.5-2.5) mg/dL Total Bilirubin 0.3 (0.2-1.0) mg/dL AST 52 H (15-37) U/L ALT 30 (12-78) U/L Alkaline Phosphatase 53 (45-117) U/L Troponin I (0.02-0.05) ng/mL Total Protein 6.7 D (6.4-8.2) g/dL Albumin 3.0 L (3.4-5.0) g/dL TSH (0.358-3.740) uIU/mL Urine Color (Yellw/Straw) Urine Clarity (Clear) Urine pH (5.0-8.5) Ur Specific [place] (1.002-1.035) Urine Protein (Neg-Trace) mg/dL Urine Glucose (UA) (Negative) mg/dL Urine Ketones (Negative) mg/dL Urine Occult Blood (Negative) Urine Nitrate (Negative) Urine Bilirubin (Negative) Urine Urobilinogen (Less than 2) mg/dL Ur Leukocyte Esterase (Negative) Urine WBC (0-5) /hpf Hyaline Casts (0-3) /lpf Urine Mucus (Occasional) /lpf Micro UA Comment Ur Microscopic Review Urine Culture Comments Serum Alcohol 158 H (0-5) mg/dL 09/29/18 09/29/18 Range/Units 06:25 12:25 CBC w Diff WBC (4.0-11.0) th/mm3 RBC (4.50-5.90) mil/mm3 Hgb (13.0-17.0) gm/dL Hct (39.0-51.0) % MCV (80.0-100.0) fL MCH (27.0-34.0) pg MCHC (32.0-36.0) % RDW (11.6-17.2) % Plt Count (150-450) th/mm3 MPV (7.0-11.0) fL Neut % (Auto) (16.0-70.0) % Lymph % (Auto) (9.0-44.0) % [place] % (Auto) (0.0-8.0) % Eos % (Auto) (0.0-4.0) % Baso % (Auto) (0.0-2.0) % Neut # (Auto) (1.8-7.7) th/mm3 Lymph # (Auto) (1.0-4.8) th/mm3 [place]row # (Auto) (0.0-0.9) th/mm3 Eos # (Auto) (0.0-0.4) th/mm3 Baso # (Auto) (0.0-0.2) th/mm3 WBC Differential Diff Scan Seg Neuts % (Manual) (16-70) % Lymphocytes % (Manual) (9-44) % Monocytes % (Manual) (0-8) % Eosinophils % (Manual) (0-4) % Abs Neuts (Manual) (1.8-7.7) th/mm3 Differential Comment Platelet Estimate (Normal) Platelet Morphology (Normal) D-Dimer Quant (PE/DVT) (0.00-0.50) mg/L FEU Sodium Cancelled 130 L (136-145) meq/L Potassium (3.5-5.1) meq/L Chloride (98-107) meq/L Carbon Dioxide (21.0-32.0) meq/L Anion Gap (5-15) meq/L BUN (7-18) mg/dL Creatinine (0.60-1.30) mg/dL Estimated GFR (>89) mL/min POC Glucose (68-110) mg/dl Random Glucose (74-106) mg/dL Osmolality 288 (275-295) mosm/kg Lactic Acid (0.4-2.0) mmol/L Calcium (8.5-10.1) mg/dL Magnesium (1.5-2.5) mg/dL Total Bilirubin (0.2-1.0) mg/dL AST (15-37) U/L ALT (12-78) U/L Alkaline Phosphatase (45-117) U/L Troponin I (0.02-0.05) ng/mL Total Protein (6.4-8.2) g/dL Albumin (3.4-5.0) g/dL TSH 1.090 (0.358-3.740) uIU/mL Urine Color (Yellw/Straw) Urine Clarity (Clear) Urine pH (5.0-8.5) Ur Specific [place] (1.002-1.035) Urine Protein (Neg-Trace) mg/dL Urine Glucose (UA) (Negative) mg/dL Urine Ketones (Negative) mg/dL Urine Occult Blood (Negative) Urine Nitrate (Negative) Urine Bilirubin (Negative) Urine Urobilinogen (Less than 2) mg/dL Ur Leukocyte Esterase (Negative) Urine WBC (0-5) /hpf Hyaline Casts (0-3) /lpf Urine Mucus (Occasional) /lpf Micro UA Comment Ur Microscopic Review Urine Culture Comments Serum Alcohol (0-5) mg/dL Imaging Data Radiologist's impression: Chest X-Ray 09/29/18 00:50 CONCLUSION: No acute disease Chest CTA 09/29/18 01:35 CONCLUSION: This study is negative for pulmonary embolism. Discharge Plan Discharge Disposition Patient Disposition: ED Admit(ED Internal Use Only) Discharge Condition Condition: Stable Discharge Order Discharge Orders: Discharge Order (Routine); Ordered 09/29/18 Ordered By: David Miller ED Use Only Admit Order (Routine); Ordered 09/29/18 Ordered By: Luz Elena Jernigan Discharge Details Anticipated Discharge Date: 09/29/18 Discharge Comment: Okay to discharge once seen by Dr. Shelby Diagnosis: Hyponatremia, Viral syndrome, Alcohol use Physicians Team ED Provider: Luz Elena Jernigan Primary Care Provider: Keagan Brown Attending Provider: Justice Shelby Status ED Status: Left Department Discharge Information Discharge Date/Time: 09/29/18 03:35
[2018-09-28] MEDS: Sod Chloride 0.9% Inj 1,000 ML IV.SIG SCH ×2 (23:13→23:58)
[2018-09-28 23:25] LABS: Baso % (Auto) 1.6 % (0.0-2.0); Eos # (Auto) 0.2 th/mm3 (0.0-0.4); Eos % (Auto) 7.2 % (0.0-4.0); Hematocrit 38.4 % (39.0-51.0); Hemoglobin 13.1 gm/dL (13.0-17.0); Lymph # (Auto) 0.9 th/mm3 (1.0-4.8); Lymph % (Auto) 36.2 % (9.0-44.0); Mean Corpuscular HGB Conc 34.1 % (32.0-36.0); Mean Corpuscular Hemoglobin 34.5 pg (27.0-34.0); Mono # (Auto) 0.5 th/mm3 (0.0-0.9); Mono % (Auto) 17.5 % (0.0-8.0); Neut % (Auto) 37.5 % (16.0-70.0); Platelet Count 190 th/mm3 (150-450); Red Cell Distribution Width 12.5 % (11.6-17.2); White Blood Count 2.6 th/mm3 (4.0-11.0)
[2018-09-28 23:43] LABS: Alanine Aminotransferase 39 U/L (12-78); Albumin 3.4 g/dL (3.4-5.0); Alkaline Phosphatase 74 U/L (45-117); Anion Gap 9 meq/L (5-15); Aspartate Aminotransferase 61 U/L (15-37); Blood Urea Nitrogen 7 mg/dL (7-18); Calcium 7.9 mg/dL (8.5-10.1); Carbon Dioxide 23.1 meq/L (21.0-32.0); Chloride 91 meq/L (98-107); Glomerular Filtration Rate 78 mL/min (>89); Glucose,Random 85 mg/dL (74-106); Magnesium 1.7 mg/dL (1.5-2.5); Potassium 3.5 meq/L (3.5-5.1); Total Protein 7.9 g/dL (6.4-8.2)
[2018-09-28 23:46] LABS: Sodium 123 meq/L (136-145)
[2018-09-28 23:51] LABS: Eosinophils 4 % (0-4); Lymphocytes 38 % (9-44); Monocytes 12 % (0-8)
[2018-09-28 23:54] LABS: Platelet Estimate Normal (Normal); Platelet Morphology Normal (Normal)
[2018-09-28 23:57] LABS: Bilirubin,Urine Negative (Negative); Clarity,Urine Clear (Clear); Color,Urine Yellow (Yellw/Straw); Glucose,Urine (UA) Negative (Negative); Leukocyte Esterase,Urine Negative (Negative); Nitrite,Urine Negative (Negative); PH,Urine 6.5 (5.0-8.5)
[2018-09-29 00:06] LABS: WBC,Urine 0-5 /hpf (0-5)
[2018-09-29 00:07] LABS: Hyaline Casts,Urine 0-3 /lpf (0-3); Mucus,Urine Few /lpf (Occasional)
[2018-09-29] MEDS ORDERED: BENZONATATE 200 MG PO PRN (01:01)
[2018-09-29] MEDS ORDERED: Bisacodyl 10 MG Supp RECTAL PRN (01:06)
[2018-09-29] MEDS ORDERED: Acetaminophen 325 MG Tablet PO PRN (01:06)
--- NOTE | 2018-09-29 01:13 | XR ---
EXAM DATE: 09/29/2018 1:03 AM EST AGE/SEX: 53 years / Male INDICATIONS: Cough congestion, shortness of breath, syncope, hypotensive. CLINICAL DATA: This is the patient's initial encounter. Patient reports that signs and symptoms have been present for 1 week and indicates a pain score of 0/10. MEDICAL/SURGICAL HISTORY: Hypertension. None. COMPARISON: [facility], CHEST SINGLE AP, 12/22/2017. . FINDINGS: A single AP view of the chest demonstrates the lungs to be symmetrically aerated without evidence of mass, infiltrate or effusion. The cardiomediastinal contours are unremarkable. Osseous structures a re intact. CONCLUSION: No acute disease Electronically signed by: Daniel Mae MD Board Certified Radiologist 09/29/2018 1:12 AM EST
[2018-09-29] MEDS ORDERED: Sod Chloride 0.9% Inj 1,000 ML IV.CONT SCH (01:15)
[2018-09-29] MEDS ORDERED: Azithromycin Inj 500 MG in Sodium Chlor 0.9% Inj 250 ML IV.SIG SCH (02:00)
--- NOTE | 2018-09-29 02:18 | CT ---
EXAM DATE: 09/29/2018 2:07 AM EST AGE/SEX: 53 years / Male INDICATIONS: Elevated D-dimer, weakness, cough CLINICAL DATA: This is the patient's initial encounter. Patient reports that signs and symptoms have been present for 1 day and indicates a pain score of 0/10. MEDICAL/SURGICAL HISTORY: Hypertension. None. RADIATION DOSE: 6.81 CTDI (mGy) COMPARISON: [facility], CT PULMONARY ANGIOGRAM, 12/22/2017. . TECHNIQUE: Volumetric scanning was performed using a multi-row detector CT scanner during bolus infu solomon of 75 ml Omnipaque 350 (iohexol) nonionic water-soluble contrast as a single exam dose. The holden a was post processed with a variety of visualization algorithms including full volume maximum intensi ty projection and sliding thin slab reformation. Using automated exposure control and adjustment of the mA and/or kV according to patient size, radiation dose was kept as low as reasonably achievable t o obtain optimal diagnostic quality images. DICOM format image data is available electronically for review and comparison. FINDINGS: Pulmonary Arteries: No filling defects are seen in the pulmonary arteries out to the subsegmental ve ssels. The left and right pulmonary arteries are normal in diameter. Lung: No infiltrates seen. Effusion: None. Mediastinum: Mildly prominent central mediastinal lymph nodes again noted Other: The axilla is unremarkable. CONCLUSION: This study is negative for pulmonary embolism. Electronically signed by: Daniel Mae MD Board Certified Radiologist 09/29/2018 2:17 AM EST
[2018-09-29] MEDS ORDERED: Benzonatate 100 MG Capsule PO PRN (04:17)
[2018-09-29 07:10] LABS: Baso % (Auto) 1.1 % (0.0-2.0); Eos # (Auto) 0.2 th/mm3 (0.0-0.4); Eos % (Auto) 6.1 % (0.0-4.0); Hematocrit 34.5 % (39.0-51.0); Hemoglobin 11.8 gm/dL (13.0-17.0); Lymph # (Auto) 0.9 th/mm3 (1.0-4.8); Mean Corpuscular HGB Conc 34.3 % (32.0-36.0); Mean Corpuscular Hemoglobin 34.6 pg (27.0-34.0); Mean Corpuscular Volume 100.7 fL (80.0-100.0); Mono # (Auto) 0.4 th/mm3 (0.0-0.9); Mono % (Auto) 16.6 % (0.0-8.0); Neut % (Auto) 42.2 % (16.0-70.0); Platelet Count 185 th/mm3 (150-450); Red Blood Count 3.43 mil/mm3 (4.50-5.90); Red Cell Distribution Width 12.6 % (11.6-17.2); White Blood Count 2.5 th/mm3 (4.0-11.0)
[2018-09-29 07:19] LABS: Alanine Aminotransferase 30 U/L (12-78); Alkaline Phosphatase 53 U/L (45-117); Anion Gap 6 meq/L (5-15); Aspartate Aminotransferase 52 U/L (15-37); Blood Urea Nitrogen 5 mg/dL (7-18); Calcium 7.7 mg/dL (8.5-10.1); Carbon Dioxide 23.1 meq/L (21.0-32.0); Chloride 103 meq/L (98-107); Glomerular Filtration Rate Greater Than 89 mL/min (>89); Glucose,Random 73 mg/dL (74-106); Potassium 4.2 meq/L (3.5-5.1); Sodium 132 meq/L (136-145); Total Protein 6.7 g/dL (6.4-8.2)
[2018-09-29] MEDS ORDERED: Influenza (Quadrivalent) Vaccine 0.5 ML Syringe IM ONE (08:00)
[2018-09-29 08:42] LABS: Thyroid Stimulating Hormone 1.09 uIU/mL (0.358-3.740)
--- NOTE | 2018-09-29 08:48 | ECG ---
Date Performed: 09/28/2018 Time Performed: 22:51:26 PTAGE: 53 years EKG: Marked baseline artifact SINUS BRADYCARDIA BORDERLINE ECG Within the constraints of artifac t it appears that the rate has slowed and nonspecific ST segment depressions have improved. PREVIOUS TRACING : 12/22/2017 21.07 DOCTOR: Dc Tarango Interpretating Date/Time 09/29/2018 08:48:09
[2018-09-29] MEDS ORDERED: Senna/Docusate Sodium 8.6/50 MG Tablet PO SCH (09:00)
--- NOTE | 2018-09-29 10:45 | P.HPIM ---
History of Present Illness Primary Care Physician: Keagan Brown Chief Complaint: Generalized weakness History of Present Illness: 53-year-old male with known history of chronic hyponatremia, alcohol abuse, hypertension who presented to the hospital for evaluation of generalized weakness. Patient has been undergoing outpatient management for multiple etiologies. Did go to a urgent care center and was diagnosed with folliculitis of the scalp and was started on Bactrim. The patient still did not feel well after treatment and he went back to the urgent care center and was treated for bronchitis with azithromycin, Tessalon Perles. Patient states that he continued to have generalized weakness, fatigue, poor appetite. The patient was checking his blood pressure during these events and noticed that his blood pressure has been running low. Because he did not improve and his blood pressure was low he came to the emergency department for evaluation. On presentation he did have low blood pressure of 80/51. Workup did indicate hyponatremia of 123. Upon review of medical records does appear if the patient has history of hyponatremiasecondary to chronic alcohol use. Patient still continues to drink alcohol on a daily basis anywhere from 5-8 beers daily. Patient was recommend admission because of the hyponatremia. Upon evaluating patient this morning his sodium level has improved. He does feel better. Blood pressure is much improved. Patient denied any fever, chills , shortness of breath, dyspnea, abdominal pain. Did have couple episodes of nausea and vomiting during the middle of last week. However none recently. Denies any diarrhea or constipation. Inpatient Certification Inpatient Certification: I certify that the inpatient services were ordered in accordance with Medicare regulations governing the order. This includes certification that hospital inpatient services are reasonable and necessary and in the case of services not specified as inpatient-only under 42 CFR 419.22(n), that they are appropriately provided as inpatient services in accordance to with the 2-midnight benchmark under 43 CFR 412.3(e) Estimated Total Length of Stay (Days): 2 Plans for Post Hospital Care: Not yet determined Review of Systems Review of Systems: all other systems reviewed are negative Constitutional: Reports fatigue PMFSH Medical History Medical History Alcohol use (Acute) Congestive heart failure (Acute) HTN (hypertension) (Acute) Surgical History Surgical History History of appendectomy (Acute) History of facial surgery (Acute) Family History Family History Father History of lung cancer Mother History of lung cancer Social History Social History Substance History: No History of Abuse Second Hand Smoke Exposure: Yes Smoking Status: Never smoker How Often Do You Have a Drink Containing Alcohol: 4 or more times a week Recent Travel in [facility] within the Last 8 Weeks: No Immunization History Tetanus Immunization: <5 Years Hx Influenza Vaccine This Season: No Medications and Allergies Allergies Allergy/AdvReac Type Severity Reaction Status Date / Time No Known Allergies Allergy Verified 09/28/18 23:23 Home Medications Medication Instructions Recorded Confirmed Type amlodipine 5 mg PO DAILY 04/30/18 09/28/18 History hydralazine 25 mg PO BID 04/30/18 09/28/18 History metoprolol succinate 50 mg PO BID 04/30/18 09/28/18 History azithromycin 250 mg PO DAILY 09/28/18 09/28/18 History benzonatate 200 mg PO TID PRN 09/28/18 09/28/18 History citalopram 40 mg PO DAILY 09/28/18 09/28/18 History sulfamethoxazole-trimethoprim 1 tab PO BID 09/28/18 09/28/18 History [Bactrim DS] Active Medications: Active Medications Acetaminophen (Tylenol) 650 mg PO Q4H PRN PRN Reason: Temp > 100.4 Al Hydroxide/Mg Hydroxide (Milk Of Magnesia Liq) 30 ml PO Q12H PRN PRN Reason: Mild Constipation Albuterol (Duoneb Neb (Prn)) 1 ampul NEB Q4HR NEB PRN PRN Reason: SOB/WHEEZING Benzonatate (Tessalon Perles) 200 mg PO TID PRN PRN Reason: COLD SYMPTOMS Bisacodyl (Dulcolax Supp) 10 mg RECTAL DAILY PRN PRN Reason: SEVERE CONSITIPATION Citalopram Hydrobromide (Celexa) 40 mg PO DAILY [facility] Last Admin: 09/29/18 09:10 Dose: 40 mg Azithromycin 500 mg/ Sodium (Chloride) 250 mls @ 250 mls/hr IV.SIG Q24H [facility] Last Infusion: 09/29/18 03:03 Dose: Infused Lactulose (Lactulose Liq) 30 ml PO DAILY PRN PRN Reason: SEVERE CONSITIPATION Ondansetron HCl (Zofran Inj) 4 mg IV.PUSH Q6H PRN PRN Reason: NAUSEA OR VOMITING Senna/Docusate Sodium (Alycia-Colace) 1 tab PO BID [facility] Last Admin: 09/29/18 08:50 Dose: Not Given Sennosides (Senokot) 17.2 mg PO Q12H PRN PRN Reason: Moderate Constipation Sodium Chloride (Ns Flush) 2 ml IV.FLUSH BID [facility] Last Admin: 09/29/18 08:50 Dose: Not Given Sodium Chloride (Ns Flush) 2 ml IV.FLUSH PRN PRN PRN Reason: FLUSH AFTER USING IV ACCESS Physical Exam Vital signs: Vital Signs 09/28/18 21:55 09/28/18 22:00 09/28/18 23:06 Temperature 97.5 F L Pulse Rate 54 L 48 L 48 L Respiratory Rate 18 20 Blood Pressure 80/51 L 111/68 Pulse Oximetry 99 96 97 09/29/18 00:00 09/29/18 00:46 09/29/18 02:10 Temperature Pulse Rate 63 58 L 59 L Respiratory Rate 20 20 20 Blood Pressure 113/74 135/79 131/78 Pulse Oximetry 97 100 96 09/29/18 08:00 Temperature 97.5 F L Pulse Rate 59 L Respiratory Rate 22 Blood Pressure 163/85 H Pulse Oximetry 94 L Intake & Output 09/28/18 09/29/18 09/29/18 18:59 06:59 18:59 Intake Total 2250 / 2250 Balance 2250 / 2250 Weight 55 kg Intake: IV 2250 / 2250 Azithromycin Inj 500 MG In NS 250 / 250 Inj 250 ML @ 250 mls/hr IV.SIG Q24H [facility] Rx#:[id number] NS Inj 1,000 ML @ 2000 mls/hr 1999 / 1999 IV.SIG Q30M [facility] Rx#:[id number] Narrative: GENERAL: Well-developed, well-nourished, in no acute distress. alert and orientated HEENT: Head is normocephalic without any lesions or masses noted. Facial features are symmetric. Eyes: Pupils equal round reactive to light. Extraocular muscles are intact. Conjunctivae were clear. Oropharyngeal: Pharynx without any erythema edema. Tongue is midline without deviation. Buccal mucosa is moist without any masses or lesions NECK: Supple without any masses. Trachea midline no deviation. No JVD, no bruits are appreciated CARDIAC: Regular rhythm, regular rate. S1/S2 are heard. No murmurs gallops or rubs. LUNGS: Clear to auscultation bilaterally. No wheeze, rhonchi or rales. No use of accessory muscles on inspiration or expiration. ABDOMEN: Soft, nontender. Nondistended. Bowel sounds heard in all 4 quadrants. No organomegaly or masses. Negative rebound, negative guarding EXTREMITIES: No edema, pulses are equal bilaterally. No cyanosis or clubbing NEUROLOGY: Mood and affect appear appropriate. Cranial nerves II through XII grossly intact. Muscle strength 5/5 in upper and lower extremities bilaterally. Deep tendon reflexes are 2+ in upper and lower extremities bilaterally. Results Labs CBC & Chem 7: 09/29/18 06:25 09/29/18 12:25 Imaging Impressions Chest X-Ray 09/29/18 00:50 CONCLUSION: No acute disease Chest CTA 09/29/18 01:35 CONCLUSION: This study is negative for pulmonary embolism. Caprini VTE Risk Assessment Caprini VTE Risk Assessment: No/Low Risk (score <= 1) Caprini Risk Assessment Model: Point Value = 1 Point Value = 2 Point Value = 3 Point Value = 5 Age 41-60 Minor surgery BMI > 25 kg/m2 Swollen legs Varicose veins or History of unexplained or recurrent spontaneous Oral contraceptives or hormone replacement Sepsis (< 1 month) Serious lung disease, including pneumonia (< 1 month) Abnormal pulmonary function Acute myocardial infarction Congestive heart failure (< 1 month) History of inflammatory bowel disease Medical patient at bed rest Age 61-74 Arthroscopic surgery Major open surgery (> 45 min) Laparoscopic surgery (> 45 min) Malignancy Confined to bed (> 72 hours) Immobilizing plaster cast Central venous access Age >= 75 History of VTE Family history of VTE Factor V Leiden Prothrombin [id number] Lupus anticoagulant Anticardiolipin antibodies Elevated serum homocysteine Heparin-induced thrombocytopenia Other congenital or acquired thrombophilia Stroke (< 1 month) Elective arthroplasty Hip, pelvis, or leg fracture Acute spinal cord injury (< 1 month) Prophylaxis Regimen: Total Risk Factor Score Risk Level Prophylaxis Regimen 0-1 Low Early ambulation 2 Moderate Order ONE of the following: *Sequential Compression Device (SCD) *Heparin 5000 units SQ BID 3-4 Higher Order ONE of the following medications: *Heparin 5000 units SQ TID *Enoxaparin/Lovenox 40 mg SQ daily (WT < 150 kg, CrCl > 30 mL/min) *Enoxaparin/Lovenox 30 mg SQ daily (WT < 150 kg, CrCl > 10-29 mL/min) *Enoxaparin/Lovenox 30 mg SQ BID (WT < 150 kg, CrCl > 30 mL/min) AND/OR *Sequential Compression Device (SCD) 5 or more Highest Order ONE of the following medications: *Heparin 5000 units SQ TID (Preferred with Epidurals) *Enoxaparin/Lovenox 40 mg SQ daily (WT < 150 kg, CrCl > 30 mL/min) *Enoxaparin/Lovenox 30 mg SQ daily (WT < 150 kg, CrCl > 10-29 mL/min) *Enoxaparin/Lovenox 30 mg SQ BID (WT < 150 kg, CrCl > 30 mL/min) AND *Sequential Compression Device (SCD) Assessment and Plan Plan Hyponatremia, resolved Upon review of records patient has apparent history of recurrent hyponatremia, likely secondary to chronic alcohol use Sodium level has already improved with IV hydration Obtain osmolality studies, urine sodium TSH is normal Chest x-ray and CTA of the chest was negative for any abnormality Follow-up sodium level remains stable while off of IV fluids, Counseled patient extensively on his chronic hyponatremia likely secondary to his chronic alcohol use It was recommended the patient that he needs to discontinue alcohol use, fluid restriction 1500 cc daily, follow-up with primary medical doctor for monitoring and management of his chronic hyponatremia Acute alcohol intoxication Alcohol level is 158 Continue monitor for withdrawal Start thiamine and folic acid Hypertension, presenting with hypotension Status post IV fluids Patient blood pressure medications were held initially Resume amlodipine Possible viral syndrome Continue symptomatic treatment DVT prevention Sequential compression devices Discussed Condition With: Patient, nursing staff, Dr. Shelby Discharge Planning: Patient originally anticipated to need at Least 2 midnights for recovery, but his overall assessment and status improved faster than expected. Discharge home in stable condition Activity: Ad demetrio. Diet: Healthy heart diet Medication per medication reconciliation Follow-up with primary medical doctor in 1 week H&P: Quality VTE Deep Vein Thrombosis/Pulmonary Embolism Present on Admission: No
[2018-09-29] MEDS ORDERED: amLODIPine 5 MG Tablet PO SCH (11:00)
--- NOTE | 2018-09-29 11:37 | P.DIET ---
Nutritional Evaluation Type of nutrition evaluation: initial Nutrition screening: Weight Loss > 10 lbs Objective - Diagnosis hyponatremia, alcohol abuse - Objective Body Mass Index: 19 [place] body weight: 67 kg (148lbs) % IBW: 82 Body Weight Used for Calculations: Actual Energy Needs - Lower Range (kCal/kg): 30 Energy Needs - Upper Range (kCal/kg): 35 Lower Limit kCal/kg (kCals): 1,650 Upper Limit kCal/kg (kCals): 1,925 Lower Limit Protein Factor (Grams per Kg): 1.0 Upper Limit Protein Factor (Grams per Kg): 1.2 Lower Protein Needs (Protein): 55 Upper Protein Needs (Protein): 66 Dietitian Reviewed in Medical Record: Current diet, Curent medications, Intake & Output, Labs, Medical history Diet Order: Regular Oral Diet Intake Amount: Good 75-90% Objective Comments: PMH; HTN, chronic hyponatremia, alcohol abuse Labs; Na 132 ( trending back upward), BUN 5, GFR 72 Medications; folate, thiamin Assessment Assessment: Weight loss screen; Pt presents to ED with progressive weakness with reported poor appetite and poor PO intake and is currently at nutritional risk r/t recent unplanned weight loss. Currently ordered for regular diet with 75% PO intake at breakfast this morning, otherwise good PO intake not yet established. Will send Ensure Enlive supplement in efforts to support PO intake and minimize further weight loss. Each can of Ensure Enlive will provide 350kcal and 20g protein. Will continue to monitor PO intake and supplement acceptance. Recommendations: 1. Continue with regular diet, encourage PO intake 2. Ensure Enlive TID Dietitian to Monitor: Lab values, Weight change, PO Intake, Medical course
[2018-09-29] MEDS ORDERED: Folic Acid 1 MG Tablet PO SCH (12:00)
[2018-09-29 13:55] VITALS: BP 148/70; PULSE 57; RESP 20; TEMP 97.4; O2SAT 96
== END 2018-09-29 14:30 | disposition home or self-care (01) | DRG 641 ==
LOC: PHED 21:29 → PHEDA 09-29 01:07 → PH3 09-29 03:28
PROVIDERS: ADMIT Hospitalist; ATTEND Hospitalist
CPT/HCPCS: 71010; 71045; 71275; 80053; 80307; 81001; 82948; 82962; 83605; 83735; 83930; 84295; 84443; 84484; 85025; 85379; 87040; 90760; 93005; 96360; 99291; J0456; J7030; J7050; Q9967